=== PATIENT | female | born 1950 | race African-American/Black ===

== ENCOUNTER 2018-03-01 12:16 | Emergency (ER) | payer OTHER, BC, MEDICARE ==
--- NOTE | 2018-03-01 13:53 | CT ---
CT BRAIN WITHOUT CONTRAST: Date: 03/01/18 HISTORY: Trauma, left-sided facial numbness. FINDINGS: Comparison made with exam of 05/02/16. No evidence of infarct, hemorrhage, midline shift, or abnormal extra-axial fluid collections are seen . The ventricular size is normal and the basilar cisterns are patent. The bony calvarium is intact. A n old fracture of the right lamina papyracea is again seen. IMPRESSION: No CT evidence of acute intracranial process. POS: [facility]
--- NOTE | 2018-03-01 14:06 | CT ---
CERVICAL SPINE CT WITHOUT IV CONTRAST: Date: 03/01/18 HISTORY: 67-year-old female with history of head injury and left-sided numbness secondary to trauma yesterday. COMPARISON: Prior study of 05/02/16. FINDINGS: Multilevel disc osteophytosis most marked at C5-C6 followed by C4-C5. There is at least moderate carlos l and lateral recess and foraminal stenosis at C4-C5 and C5-C6. No evidence for acute fracture or fac et dislocation. IMPRESSION: Cervical spondylosis. No acute fracture or dislocation. POS: [facility]
== END 2018-03-01 14:10 | disposition home or self-care (01) ==
LOC: ERS 12:16
DX: S09.90XA Unspecified injury of head, initial encounter (principal); I10 Essential (primary) hypertension; E78.5 Hyperlipidemia, unspecified; Z79.899 Other long term (current) drug therapy; Z79.82 Long term (current) use of aspirin; W22.8XXA Striking against or struck by other objects, initial encounter
CPT/HCPCS: 70450; 72125

== ENCOUNTER 2020-06-25 11:54 | Inpatient (IN) | payer OTHER, BC, MEDICARE ==
[2020-06-25 13:04] LABS: #Lymphocytes 0.9 thou/uL (1.20-3.40); #Monocytes 0.6 thou/uL (0.11-0.59); #Neutrophils 3.9 thou/uL (1.40-6.50); %Basophils 0.1 % (0.0-1.0); %Eosinophils 0.3 % (0.0-10.0); %Lymphocytes 16.6 % (21.0-51.0); Hemoglobin 10.8 g/dL (12.0-16.0); Mean Corpuscular HGB CONC 33.7 g/dL (32.0-36.0); Mean Corpuscular Hemoglobin 28.8 pg (27.0-31.0); Mean Corpuscular Volume 85.5 fL (78.0-98.0); Mean Platelet Volume 8.1 fL (7.4-10.4); Platelet Count 249 thou/uL (130-400); RBC Distribution Width 12.6 % (11.5-14.5); Red Blood Cell (RBC) Count 3.76 mill/uL (4.20-5.40); White Blood Cell (WBC) Count 5.5 thou/uL (4.8-10.8)
[2020-06-25 13:29] LABS: ALT (SGPT) 19 U/L (8-55); AST (SGOT) 30 U/L (5-34); Albumin 3.9 g/dL (3.4-4.8); Alkaline Phosphatase 93 U/L (40-110); Anion Gap 19 mmol/L (10-20); BUN (Urea Nitrogen) 24 mg/dL (9.8-20.1); Bilirubin, Total 0.3 mg/dL (0.2-1.2); Calc. Creatinine Clearance 0 mL/min (70-130); Calcium 9.2 mg/dL (7.8-10.44); Carbon Dioxide 21 mmol/L (23-31); Chloride 100 mmol/L (98-107); Estimated GFR-MDRD 40; Glucose 111 mg/dL (80-115); Potassium 3.6 mmol/L (3.5-5.1); Protein, Total 7.9 g/dL (6.0-8.3); Sodium 136 mmol/L (136-145)
--- NOTE | 2020-06-25 14:17 | RAD ---
SINGLE VIEW CHEST: Comparison: 05-03-11 History: Hypertension, hyperlipidemia with weakness. Patient was diagnosed with Covid 10 days ago. FINDINGS: Single view of the chest shows an enlarged but stable cardiomediastinal silhouette. There may be a thomas btle retrocardiac opacity. No pleural effusion is seen. No right pulmonary infiltrate is identified. Degenerative changes are seen in the spine. IMPRESSION: Possible subtle left lower lobe infiltrate. POS: [facility]
--- NOTE | 2020-06-25 15:27 | PDOC.HHP ---
Hospitalist HPI - History of Present Illness generalized weakness History of Present Illness: 69-year-old female with a history of hypertension, hyperlipidemia, and recent diagnosis of covid pneumonia presents with generalized wekaness. Was diagnosed with COVID 10 days ago, not admitted. Over the past few days, progressively worsening generalized weakness associated with poor appetite and reduced oral intake, so she came to the ED. on encounter, lying comfortably in bed and complains of generalized weakness and shortness of breath especially with exertion. Denies chest pain, pleuritic pain, palpitations, abdominal pain, diarrhea, hematochezia, melena, dysuria, hematuria, focal weakness, . ED Course: In the ED, found to be hypoxemic and dyspneic, started on NC and admitted for further management. Hospitalist ROS - Review of Systems Constitutional: denies: chills, sweats ENT: denies: nose discharge, nose congestion, throat pain Respiratory: reports: shortness of breath, SOB with excertion. denies: cough, pleuritic pain, sputum Cardiovascular: denies: chest pain, palpitations Gastrointestinal: denies: nausea, vomiting, abdominal pain, diarrhea, melena, hematochezia Genitourinary: denies: dysuria, frequency, hematuria Skin: denies: rash Neurological: reports: weakness Hospitalist History - Past Medical History Cardiac: reports: HTN, Hyperlipidemia Pulmonary: reports: Other ( covid pneumonia (10 days ago)) Heme/Onc: reports: Anemia NOS - Past Surgical History Other Surgical History: b/l knee surgery (L knee replacement), tubal ligation - Family History Family History: reports: hypertension - Social History Smoking Status: Never smoker Alcohol: reports: None Drugs: reports: none Living Situation: With Family Activity level: independent ambulation - Exam General Appearance: NAD, awake alert Neck: no JVD Heart: no murmur, no gallops, no rubs Heart - other findings: tachycardic Respiratory: CTAB, no wheezes, no rales, no ronchi Gastrointestinal: soft, non-tender, non-distended, normal bowel sounds Extremities: no edema Psychiatric: normal affect, normal behavior, A&O x 3 Hospitalist Results - Labs Result Diagrams: 06/25/20 12:45 06/25/20 12:45 Lab results: WBC 5.5 thou/uL (4.8-10.8) 06/25/20 12:45 Hgb 10.8 g/dL (12.0-16.0) L 06/25/20 12:45 Hct 32.1 % (36.0-47.0) L 06/25/20 12:45 MCV 85.5 fL (78.0-98.0) 06/25/20 12:45 Plt Count 249 thou/uL (130-400) 06/25/20 12:45 Neutrophils % 72.0 % (42.0-75.0) 06/25/20 12:45 Sodium 136 mmol/L (136-145) 06/25/20 12:45 Potassium 3.6 mmol/L (3.5-5.1) 06/25/20 12:45 Chloride 100 mmol/L (98-107) 06/25/20 12:45 Carbon Dioxide 21 mmol/L (23-31) L 06/25/20 12:45 BUN 24 mg/dL (9.8-20.1) H 06/25/20 12:45 Creatinine 1.55 mg/dL (0.6-1.1) H 06/25/20 12:45 Glucose 111 mg/dL (80-115) 06/25/20 12:45 Calcium 9.2 mg/dL (7.8-10.44) 06/25/20 12:45 Total Bilirubin 0.3 mg/dL (0.2-1.2) 06/25/20 12:45 AST 30 U/L (5-34) 06/25/20 12:45 ALT 19 U/L (8-55) 06/25/20 12:45 Alkaline Phosphatase 93 U/L (40-110) 06/25/20 12:45 Troponin I 0.019 ng/mL (< 0.028) 06/25/20 12:45 B-Natriuretic Peptide 34.6 pg/mL (0-100) 06/25/20 12:45 Serum Total Protein 7.9 g/dL (6.0-8.3) 06/25/20 12:45 Albumin 3.9 g/dL (3.4-4.8) 06/25/20 12:45 - EKG Interpretation EKG: LAFB. no signs of new ischemia or infarction - Radiology Interpretation Chest x-ray Status: image reviewed by me (no acute cardiopulmonary process) Hospitalist H&P A/P - Problem (1) Generalized weakness Code(s): R53.1 - WEAKNESS Status: Acute (2) Pneumonia due to COVID-19 virus Code(s): U07.1 - COVID-19; J12.89 - OTHER VIRAL PNEUMONIA Status: Acute - Plan Plan: #covid pneumonia sequelae -diagnosed 10 days ago and progressively worsened cough and generalized weakness -p/w generalized weakness, cough, and hypoxemia -well's score low risk for PE -decadron -d-dimer, ferritin, CRP -NC keep sat > 92% -infectious workup #MIL -likely due to reduced PO tolerance -Urine studies -sodium bicarb/D5w IVF #HTN -Labetalol IVP prn BP > 160/100 pending reconciliation and improved of MIL Full code Gi PPx: no Ix DVT PPx: lovenox
[2020-06-25] MEDS ORDERED: Azithromycin 500 MG VIAL ONE (16:03)
[2020-06-25] MEDS ORDERED: Dexamethasone 10 MG/ML VIAL ONE (16:03)
[2020-06-25 16:35] LABS: Bilirubin Negative (Negative); Blood, Urine Negative (Negative); Clarity Clear (Clear); Glucose, Urine (Dipstick) Normal (Negative); Ketone, Urine Trace mg/dL (Negative); Leukocyte Negative Leu/uL (Negative); Nitrite Negative (Negative); Protein, Urine (Dipstick) Negative (Neg-Trace); Specific Gravity, Urine 1.007 (1.002-1.036); Urobilinogen Normal mg/dL (Less than 2)
[2020-06-25] MEDS ORDERED: Acetaminophen 325 MG TAB PO PRN (18:15)
[2020-06-25] MEDS ORDERED: Ondansetron ODT 4 MG TAB SL PRN (18:15)
[2020-06-25] MEDS ORDERED: Ondansetron PF 4 MG/2 ML Vial IVP PRN ×2 (18:15→18:36)
[2020-06-25] MEDS ORDERED: Ondansetron ODT 4 MG TAB PO PRN (18:36)
[2020-06-25] MEDS ORDERED: Labetalol HCl 100 MG/20 ML VIAL SLOW IVP PRN (18:36)
[2020-06-25 18:45] VITALS: BMI 29.5
[2020-06-25] MEDS: Sodium Bicarbonate 150 MEQ in Dextrose 5% in Water 1,000 ML IV SCH (19:23)
[2020-06-25 20:21] LABS: Legionella Urinary Ag Negative (Negative); Strep pneumo Urine Ag NEGATIVE (NEGATIVE)
[2020-06-25 20:25] LABS: Creatinine, Urine 37.85 mg/dL (47-110)
[2020-06-26 06:07] LABS: #Lymphocytes 0.7 thou/uL (1.20-3.40); #Monocytes 0.5 thou/uL (0.11-0.59); #Neutrophils 2.9 thou/uL (1.40-6.50); %Basophils 0.3 % (0.0-1.0); %Eosinophils 0.3 % (0.0-10.0); %Lymphocytes 16.6 % (21.0-51.0); %Monocytes 11.6 % (0.0-10.0); %Neutrophils 71.2 % (42.0-75.0); Hemoglobin 9.8 g/dL (12.0-16.0); Mean Corpuscular HGB CONC 33.3 g/dL (32.0-36.0); Mean Corpuscular Hemoglobin 28.9 pg (27.0-31.0); Mean Corpuscular Volume 86.6 fL (78.0-98.0); Platelet Count 225 thou/uL (130-400); RBC Distribution Width 12.5 % (11.5-14.5)
[2020-06-26 06:26] LABS: Anion Gap 15 mmol/L (10-20); BUN (Urea Nitrogen) 19 mg/dL (9.8-20.1); Calc. Creatinine Clearance 61 mL/min (70-130); Calcium 8.4 mg/dL (7.8-10.44); Carbon Dioxide 26 mmol/L (23-31); Chloride 99 mmol/L (98-107); Estimated GFR-MDRD 57; Glucose 201 mg/dL (80-115); Potassium 3.6 mmol/L (3.5-5.1); Sodium 136 mmol/L (136-145)
[2020-06-26] MEDS: Dexamethasone 4 mg/ml Vial SLOW IVP SCH (08:24)
[2020-06-26] MEDS ORDERED: Enoxaparin Sodium 30 MG/0.3 ML SYRINGE SC SCH (09:00)
[2020-06-26] MEDS: Sodium Bicarbonate 150 MEQ in Dextrose 5% in Water 1,000 ML IV SCH ×2 (09:45→20:04)
--- NOTE | 2020-06-26 09:47 | RAD ---
RADIOGRAPH CHEST 2 VIEW: DATE: 06/26/2020 TIME: 9:03 AM HISTORY: 69-year-old female with dyspnea and hypoxemia COMPARISON: 06/25/2020 FINDINGS: On the frontal view, there is subtle finding of increased attenuation in the retrocardiac portion of the left lower lobe, especially medially. There may or may not be minimal worsening since yesterday. On the lateral view, the left lower lobe is difficult to evaluate because the right hemidi aphragm is slightly elevated, and overlaps the left lung base. No pleural effusion, cardiomegaly, or pneumothorax. No consolidation in the rest of the visualized lung viera. Minimal small focus of i ncreased attenuation at right lung base on frontal view, unchanged since yesterday. IMPRESSION: Poor visualization of left lower lobe. Uncertain whether or not there is an early infiltrate in that location. Recommend continued follow-up two-view chest radiographs in the short interval, if the patient remains symptomatic.
[2020-06-26] MEDS ORDERED: Loperamide HCl 2 MG CAP PO PRN (10:09)
--- NOTE | 2020-06-26 16:54 | PDOC.HOSPP ---
- Subjective Encounter Date: 06/26/20 Encounter Time: 08:00 Subjective: no overnight events. this morning, feeling better, breathing and coughing, energy, and appetite improved. Pending home ox - Objective Vital Signs & Weight: Vital Signs (12 hours) Temp Pulse Resp BP Pulse Ox 06/26/20 08:05 98.2 F 76 18 121/82 96 Weight Admit Weight 183 lb 1.6 oz Weight 183 lb 1.6 oz I&O: 06/25/20 06/26/20 06/27/20 06:59 06:59 06:59 Intake Total 1350 480 Output Total 2 Balance 1348 480 Result Diagrams: 06/26/20 05:36 06/26/20 05:36 Hospitalist ROS - Review of Systems Constitutional: denies: chills, sweats Respiratory: reports: cough (improved). denies: dry, shortness of breath Cardiovascular: denies: chest pain, palpitations, orthopnea Gastrointestinal: denies: nausea, vomiting, abdominal pain Genitourinary: denies: dysuria, hematuria - Medication Medications: Active Medications Generic Name Dose Route Start Last Admin Trade Name Freq PRN Reason Stop Dose Admin Dexamethasone 6 mg 06/26/20 09:00 06/26/20 08:24 Dexamethasone 4 Mg/Ml Vial SLOW IVP 6 mg DAILY DHAVAL Administration Enoxaparin Sodium 30 mg 06/26/20 09:00 06/26/20 08:23 Enoxaparin Sodium 30 Mg/0.3 Ml Syringe SC 30 mg 0900 DHAVAL Administration Sodium Bicarbonate 150 meq/ 1,150 mls @ 100 mls/hr 06/25/20 19:15 06/26/20 09:45 Dextrose/Water IV 1,150 mls INF DHAVAL Administration Loperamide HCl 2 mg 06/26/20 10:09 06/26/20 10:56 Loperamide Hcl 2 Mg Cap PO 2 mg PRN PRN Administration Diarrhea/Loose Stools - Exam General Appearance: NAD, awake alert Neck: no JVD Heart: RRR, no murmur, no gallops, no rubs Respiratory: CTAB, no wheezes, no rales, no ronchi Gastrointestinal: soft, non-tender, non-distended, normal bowel sounds Extremities: no edema Neurological: cranial nerve grossly intact, normal sensation to touch, no weakness, no focal deficits Psychiatric: normal affect, normal behavior, A&O x 3 Hosp A/P (1) Generalized weakness Code(s): R53.1 - WEAKNESS Status: Acute (2) Pneumonia due to COVID-19 virus Code(s): U07.1 - COVID-19; J12.89 - OTHER VIRAL PNEUMONIA Status: Acute - Plan #covid pneumonia sequelae -improving -elevated inflammatory markers -continue decadron -NC keep sat > 92% -home oxygen evaluation #MIL over CKD II -likely due to reduced PO tolerance -MIL resolved -stop IVF #HTN restarted home regimen -Labetalol IVP prn BP > 160/100 Full code Gi PPx: no Ix DVT PPx: lovenox ELOS: pending home oxygen delivery
[2020-06-26] MEDS: Simvastatin 10 MG TAB PO SCH (20:04)
[2020-06-26] MEDS: Gabapentin 300 MG CAP PO SCH (20:04)
[2020-06-26] MEDS ORDERED: Losartan 25 MG TAB PO SCH (22:30)
[2020-06-27 06:19] LABS: #Lymphocytes 0.8 thou/uL (1.20-3.40); #Monocytes 0.9 thou/uL (0.11-0.59); #Neutrophils 5.3 thou/uL (1.40-6.50); %Basophils 0.1 % (0.0-1.0); %Lymphocytes 11.3 % (21.0-51.0); %Monocytes 13.3 % (0.0-10.0); %Neutrophils 75.2 % (42.0-75.0); Hemoglobin 9.4 g/dL (12.0-16.0); Mean Corpuscular HGB CONC 32.9 g/dL (32.0-36.0); Mean Corpuscular Hemoglobin 28.4 pg (27.0-31.0); Mean Corpuscular Volume 86.3 fL (78.0-98.0); Mean Platelet Volume 8.4 fL (7.4-10.4); Platelet Count 201 thou/uL (130-400); RBC Distribution Width 12.5 % (11.5-14.5)
[2020-06-27 06:25] LABS: Anion Gap 10 mmol/L (10-20); BUN (Urea Nitrogen) 18 mg/dL (9.8-20.1); Calc. Creatinine Clearance 67 mL/min (70-130); Calcium 8.4 mg/dL (7.8-10.44); Carbon Dioxide 36 mmol/L (23-31); Chloride 97 mmol/L (98-107); Estimated GFR-MDRD 63; Glucose 186 mg/dL (80-115); Magnesium 1.7 mg/dL (1.6-2.6); Potassium 3.1 mmol/L (3.5-5.1); Sodium 140 mmol/L (136-145)
[2020-06-27] MEDS: Ferrous Sulfate 325 MG TAB PO SCH (08:56)
[2020-06-27] MEDS: Aspirin 81 mg Enteric Coated Tablet PO SCH (08:56)
[2020-06-27] MEDS: Gabapentin 300 MG CAP PO SCH ×2 (08:56→21:06)
[2020-06-27] MEDS: Cholecalciferol 1,000 UNITS (25 MCG) TAB PO SCH (08:56)
[2020-06-27] MEDS: Enoxaparin Sodium 40 MG/0.4 ML SYRINGE SC SCH (08:57)
[2020-06-27] MEDS ORDERED: Losartan 25 MG TAB PO SCH ×2 (09:00→21:00)
[2020-06-27] MEDS: Potassium Chloride 20 MEQ TAB PO SCH ×2 (09:02→14:50)
[2020-06-27] MEDS: Dexamethasone 4 mg/ml Vial SLOW IVP SCH (09:02)
--- NOTE | 2020-06-27 18:29 | PDOC.HOSPP ---
- Subjective Encounter Date: 06/27/20 Encounter Time: 09:00 Subjective: no ovenright events. this morning, feeling and breathing better. 96% on RA during encounter. has no complaints - Objective Vital Signs & Weight: Vital Signs (12 hours) Temp Pulse Resp BP Pulse Ox 06/27/20 08:00 98.2 F 76 18 149/83 H 97 Weight Admit Weight 183 lb 1.6 oz Weight 183 lb 1.6 oz I&O: 06/26/20 06/27/20 06/28/20 06:59 06:59 06:59 Intake Total 1350 2575 1600 Output Total 2 Balance 1348 2575 1600 Result Diagrams: 06/27/20 05:39 06/27/20 05:39 Hospitalist ROS - Review of Systems Constitutional: denies: chills, sweats Respiratory: reports: cough. denies: shortness of breath, pleuritic pain, sputum Cardiovascular: denies: chest pain, palpitations, orthopnea, paroxysmal noc. dyspnea Gastrointestinal: denies: nausea, vomiting, abdominal pain, diarrhea Genitourinary: denies: dysuria, frequency, hematuria - Medication Medications: Active Medications Generic Name Dose Route Start Last Admin Trade Name Freq PRN Reason Stop Dose Admin Aspirin 81 mg 06/27/20 09:00 06/27/20 08:56 Aspirin 81 Mg Enteric Coated Tablet PO 81 mg DAILY DHAVAL Administration Cholecalciferol 1,000 units 06/27/20 09:00 06/27/20 08:56 Cholecalciferol 1,000 Units (25 Mcg) Tab PO 1,000 units DAILY DHAVAL Administration Dexamethasone 6 mg 06/26/20 09:00 06/27/20 09:02 Dexamethasone 4 Mg/Ml Vial SLOW IVP 6 mg DAILY DHAVAL Administration Enoxaparin Sodium 40 mg 06/27/20 09:00 06/27/20 08:57 Enoxaparin Sodium 40 Mg/0.4 Ml Syringe SC 40 mg 09 DHAVAL Administration Ferrous Sulfate 325 mg 06/27/20 08:00 06/27/20 08:56 Ferrous Sulfate 325 Mg Tab PO 325 mg QAM-WM DHAVAL Administration Gabapentin 300 mg 06/26/20 21:00 06/27/20 08:56 Gabapentin 300 Mg Cap PO 300 mg BID DHAVAL Administration Loperamide HCl 2 mg 06/26/20 10:09 06/26/20 10:56 Loperamide Hcl 2 Mg Cap PO 2 mg PRN PRN Administration Diarrhea/Loose Stools Pantoprazole Sodium 40 mg 06/26/20 21:00 06/26/20 20:04 Pantoprazole 40 Mg Tab PO 40 mg HS DHAVAL Administration Simvastatin 10 mg 06/26/20 21:00 06/26/20 20:04 Simvastatin 10 Mg Tab PO 10 mg HS DHAVAL Administration - Exam General Appearance: NAD, awake alert Neck: no JVD Heart: RRR, no murmur, no gallops, no rubs Respiratory: CTAB, no wheezes, no rales, no ronchi Gastrointestinal: soft, non-tender, non-distended, normal bowel sounds Extremities: no cyanosis, no clubbing, no edema Psychiatric: normal affect, normal behavior, A&O x 3 Hosp A/P (1) Generalized weakness Code(s): R53.1 - WEAKNESS Status: Acute (2) Pneumonia due to COVID-19 virus Code(s): U07.1 - COVID-19; J12.89 - OTHER VIRAL PNEUMONIA Status: Acute - Plan #covid pneumonia sequelae -improving -elevated inflammatory markers -continue decadron -NC keep sat > 92% #MIL over CKD II -likely due to reduced PO tolerance -MIL resolved #HTN continue home regimen #LE swelling -likely due to CVI -raise legs above heart level while supine, compression stocking Full code Gi PPx: no Ix DVT PPx: lovenox ELOS: pending home oxygen delivery
[2020-06-27] MEDS: Simvastatin 10 MG TAB PO SCH (21:07)
[2020-06-28 06:36] LABS: Anion Gap 12 mmol/L (10-20); BUN (Urea Nitrogen) 21 mg/dL (9.8-20.1); Calc. Creatinine Clearance 56 mL/min (70-130); Calcium 8.6 mg/dL (7.8-10.44); Carbon Dioxide 31 mmol/L (23-31); Chloride 98 mmol/L (98-107); Estimated GFR-MDRD 51; Glucose 133 mg/dL (80-115); Magnesium 1.8 mg/dL (1.6-2.6); Potassium 3.8 mmol/L (3.5-5.1); Sodium 137 mmol/L (136-145)
[2020-06-28] MEDS: Ferrous Sulfate 325 MG TAB PO SCH (08:24)
[2020-06-28] MEDS: Aspirin 81 mg Enteric Coated Tablet PO SCH (08:24)
[2020-06-28] MEDS: Enoxaparin Sodium 40 MG/0.4 ML SYRINGE SC SCH (08:25)
[2020-06-28] MEDS: Gabapentin 300 MG CAP PO SCH (08:25)
[2020-06-28] MEDS: Cholecalciferol 1,000 UNITS (25 MCG) TAB PO SCH (08:28)
[2020-06-28] MEDS: Dexamethasone 4 mg/ml Vial SLOW IVP SCH (09:09)
[2020-06-28 11:43] VITALS: BP 145/79; TEMP 98.7
--- NOTE | 2020-06-29 02:26 | DIS ---
DATE OF ADMISSION: 06/25/2020 DATE OF DISCHARGE: 06/28/2020 HOSPITAL COURSE: Ms. Zimmer is a 69-year-old female with a medical history of hypertension and recently diagnosed COVID infection, who presented with acute progressively worsening generalized weakness, poor appetite, cough, and shortness of breath. She was diagnosed with sequelae of COVID pneumonia. She was initially hypoxemic requiring 2 L of nasal cannula, however, by the time she was discharged, she was saturating in the mid to lower 90s, and breathing well on room air. On the day of discharge, she had no complaints and was feeling well with the exception of infrequent coughing. PHYSICAL EXAMINATION: VITAL SIGNS: 145/79, pulse 70, respiratory rate 18, oxygen saturation 98% on 2 L nasal cannula, temperature 98.7. GENERAL: Lying comfortably in bed. Awake and alert, morbidly obese. NECK: No JVD. HEART: Regular rate and rhythm. No murmurs, gallops, or rubs. RESPIRATORY: Clear to auscultation bilaterally. No wheezing, rales or rhonchi. GI: Soft, nontender, nondistended. Normal bowel sounds. EXTREMITIES: No edema. PSYCHIATRIC: Proper mood and affect. Alert and oriented x3. MEDICATION LIST: New medications: 1. Decadron 6 mg p.o. daily for 4 more days. 2. Codeine and guaifenesin 5 mL q.4 hours p.r.n. cough. Continued medications: 1. Aspirin. 2. Vitamin D3. 3. Ferrous sulfate. 4. Lasix 20 mg q.h.s. p.r.n. edema (which was changed from scheduled). 5. Gabapentin 300 mg p.o. b.i.d. 6. Lovastatin. 7. Mirabegron (Myrbetriq). 8. Olmesartan. 9. Pantoprazole. Job ID: [id number]
== END 2020-06-28 14:02 | disposition home or self-care (01) | DRG 177 ==
LOC: ERS 11:54 → INTOOBSV 17:49 → T4-A 17:49 → OBSVTOIN 06-28 14:01
PROVIDERS: ADMIT Internal Medicine; ATTEND Internal Medicine
DX: U07.1 COVID-19 (principal); J12.89 Other viral pneumonia; N17.9 Acute kidney failure, unspecified; N18.2 Chronic kidney disease, stage 2 (mild); I12.9 Hypertensive chronic kidney disease with stage 1 through stage 4 chronic kidney disease, or unspecified chronic kidney disease; I87.2 Venous insufficiency (chronic) (peripheral); E78.5 Hyperlipidemia, unspecified; Z96.652 Presence of left artificial knee joint; Z98.51 Tubal ligation status
CPT/HCPCS: 36415; 71045; 71046; 80048; 80053; 81003; 82570; 82728; 83735; 83880; 84145; 84300; 84484; 85025; 85379; 86140; 87449; 87633; 87899; 93005; 96361; 96365; 96366; 96367; 96372; 96375; 96376; G0378; J0456; J1100; J1650; J7070

== ENCOUNTER 2020-08-21 12:40 | Outpatient (CLI) | payer OTHER, BC, MEDICARE ==
--- NOTE | 2020-08-21 13:49 | MRI ---
MRI lumbar spine noncontrast HISTORY: Low back pain. Radiculopathy right side. COMPARISON: 01/01/2015. FINDINGS: The conus medullaris has a normal appearance. Vertebral body heights are maintained. Hetero geneity of the bone marrow signal has progressed since the prior 2015 exam and may be related to red marrow replacement. No focal masses are apparent. T12-L1: Mild osteophytosis. Central canal and neural foramina are patent. L1-2: Mild disc space narrowing. Desiccation of the disc. Mild posterior disc bulge. Thecal sac is pa tent. There is osteophytosis of each facet. Mild stenosis of each neural foramen. L2-3: Desiccation of the disc. Minimal disc bulge. Central canal is patent. Osteophytosis of the face ts. Mild stenosis of each neural foramen. L3-4: Minimal disc bulge. Thecal sac is patent. Osteophytosis of the facets. Moderate bilateral leobardo inal stenoses. L4-5: Desiccation of the disc. Minimal degenerative spondylolisthesis similar in appearance to the pr ior study. Diffuse posterior disc protrusion more prominent to the left of midline. No significant superior extension of the protrusion as was demonstrated on the 2015 exam. Effacement of the ventral aspect of the thecal sac. Osteophytosis of the facets. Mild to moderate stenosis of the central canal. Moderate right and severe left foraminal stenoses. L5-S1: Desiccation of the disc. Minimal disc bulge. Osteophytosis of the facets. Thecal sac is patent . Moderate right and severe left foraminal stenoses. Within the partially visualized pelvis, multiple heterogeneous hypointense lesions are apparent withi n the uterine myometrium. Uterus is incompletely imaged. IMPRESSION : Degenerative changes lower lumbar spine as detailed above. Protrusion of the L4-5 disc is less severe with than on the 2015 exam. No focal nerve root compression now evident. Stenoses most pronounced at the left neural foramina lowest 2 levels. Clinical correlation regarding the left L4 and L5 dermatomes is required.
== END 2020-08-21 12:41 | disposition home or self-care (01) ==
LOC: TBSIIMAG 12:40
PROVIDERS: ATTEND Specialist
DX: M51.16 Intervertebral disc disorders with radiculopathy, lumbar region (principal); M47.26 Other spondylosis with radiculopathy, lumbar region; M48.061 Spinal stenosis, lumbar region without neurogenic claudication
CPT/HCPCS: 72148

== ENCOUNTER 2020-08-31 09:37 | Outpatient (CLI) | payer OTHER, BC, MEDICARE ==
--- NOTE | 2020-08-31 10:42 | MMO ---
Right Breast MAMMO Unilat Diag DDI RT+ABI. CLINICAL HISTORY: Patient is 69 years old and is seen for additional evaluation requested at current screening. The patient has the following family history of breast cancer: maternal aunt and paternal aunt. The patient has no personal history of cancer. The patient has a history of Excisional Biopsy in AGE 20'S - BENIGN UNSURE WHICH BREAST. VIEWS: The views performed were: right craniocaudal spot compression with tomosynthesis; right mediolateral oblique spot compression with tomosynthesis; and right mediolateral with tomosynthesis. FILMS COMPARED: The present examination has been compared to prior imaging studies performed at [facility] on 08/10/2020, and at [facility] on 12/28/2008, 12/09/2011 and 08/31/2020. This study has been interpreted with the assistance of computer-aided detection. MAMMOGRAM FINDINGS: The breast is heterogeneously dense, which could obscure a lesion on mammography. Finding 1: There is a stable focal asymmetry seen in the upper-outer region of the right breast. Sonography of this region is normal. Finding 2: Normal appearing lymph nodes are seen in the right axilla mammographically and sonographically. There are no suspicious masses, suspicious calcifications, or new areas of architectural distortion. IMPRESSION: THERE IS NO MAMMOGRAPHIC EVIDENCE OF MALIGNANCY. A ROUTINE FOLLOW-UP MAMMOGRAM IN 1 YEAR IS RECOMMENDED. THE RESULTS OF THIS EXAM WERE SENT TO THE PATIENT. ACR BI-RADS Category 2 - Benign finding MAMMOGRAPHY NOTE: 1. A negative mammogram report should not delay a biopsy if a dominant of clinically suspicious mass is present. 2. Approximately 10% to 15% of breast cancers are not detected by mammography. 3. Adenosis and dense breasts may obscure an underlying neoplasm. Reported by: RIZWAN CENTENO MD Electonically Signed: [id number]
--- NOTE | 2020-08-31 10:46 | ULT ---
EXAM: US Breast Limited Rt PROVIDED CLINICAL HISTORY: Abnormal screening mammogram COMPARISON: Screening mammogram 08/10/2020 Diagnostic mammogram 08/31/2020 FINDINGS: Limited sonographic interrogation was performed of the right upper outer quadrant in the region of sc reening mammogram concern. No suspicious abnormality is evident. Normal-appearing right axillary lymph nodes are seen. IMPRESSION: No concerning sonographic findings are evident. BI-RADS 2 -- benign findings
== END 2020-08-31 09:38 | disposition home or self-care (01) ==
LOC: BICMAMMO 09:37
PROVIDERS: ATTEND Physician Assistant
DX: R92.8 Other abnormal and inconclusive findings on diagnostic imaging of breast (principal)
CPT/HCPCS: G0279

== ENCOUNTER 2022-07-16 08:52 | Outpatient (CLI) | payer MEDICARE | END 2022-07-16 08:53 | disposition home or self-care (01) | LOC: BICULT 08:52 | PROVIDERS: ATTEND Family Medicine | DX: R79.89 Other specified abnormal findings of blood chemistry (principal) | CPT/HCPCS: 76705 ==

== ENCOUNTER 2023-05-29 08:13 | Outpatient (CLI) | payer MEDICARE | END 2023-05-29 08:14 | disposition home or self-care (01) | LOC: BICMAMMO 08:13 | PROVIDERS: ATTEND Physician Assistant | DX: N63.10 Unspecified lump in the right breast, unspecified quadrant (principal) | CPT/HCPCS: 77065; G0279 ==